=== PATIENT | female | born 2000 | race Caucasian/White ===

== ENCOUNTER 2019-01-04 20:27 | Emergency (ER) | payer OTHER ==
[~2019-01-04] VITALS: Ht 175.3 cm; Wt 67.7 kg
[2019-01-04 20:33] VITALS: TEMP 98.7
[2019-01-04] MEDS ORDERED: AMOXICILLIN 8751 TAB PO (21:31)
[2019-01-04 22:04] VITALS: BP 141/84; PULSE 85
== END 2019-01-04 22:07 | disposition home or self-care (01) ==
LOC: COL.ER 20:27
DX: H72.92 Unspecified perforation of tympanic membrane, left ear (principal); G40.909 Epilepsy, unspecified, not intractable, without status epilepticus